=== PATIENT | male | born 1990 | race Caucasian/White ===

== ENCOUNTER 2018-02-10 21:33 | Emergency (ER) | payer SELFPAY, OTHER ==
[2018-02-10 23:53] LABS: AMPHETAMINE/METHAMPHETAMINE Negative (NEGATIVE); BARBITURATES Negative (NEGATIVE)
[2018-02-10 23:54] LABS: BENZODIAZEPINES Negative (NEGATIVE); CANNABINOIDS Positive (NEGATIVE); COCAINE Negative (NEGATIVE); OPIATES Negative (NEGATIVE)
== END 2018-02-11 00:30 | disposition left against medical advice (07) ==
LOC: FTE 02-11 00:30
DX: R00.2 Palpitations (principal); T40.7X5A Adverse effect of cannabis (derivatives), initial encounter
CPT/HCPCS: 80307; 93005; 99284-25

== ENCOUNTER 2018-04-08 15:35 | Emergency (ER) | payer SELFPAY | END 2018-04-08 19:55 | disposition home or self-care (01) | LOC: E/R 15:35 | DX: S01.81XA Laceration without foreign body of other part of head, initial encounter (principal); S02.19XB Other fracture of base of skull, initial encounter for open fracture; Y08.89XA Assault by other specified means, initial encounter | CPT/HCPCS: 12013; 70450; 99284-25 ==